=== PATIENT | male | born 1935 | race Caucasian/White ===

== ENCOUNTER 2018-08-11 10:08 | Emergency (ER) | payer MEDICARE, BC ==
[2018-08-11 10:24] VITALS: BP 136/67
[2018-08-11] MEDS ORDERED: Lidocaine 2% VISCOUS* 15 ML UDC PO ONE (10:43)
[2018-08-11] MEDS ORDERED: Phenylephrine 1% NASAL* 15 ML BOT RIGHT NARE ONE (10:44)
[2018-08-11] MEDS ORDERED: Silver Nitrate/Potassium Nitr* 1 EA STICK TOPICAL ONE (11:01)
--- NOTE | 2018-08-11 11:28 | UC ---
Epistaxis Nasal HPI - HPI Summary HPI Summary: The patient is an 82-year-old male that had the onset of right sided nosebleed this a.m. after sneezing. He states that he has had cold symptoms for about a week and has been blowing his nose a lot. He is on Eliquis and aspirin. - History of Current Complaint Chief Complaint: UCGeneralIllness Stated Complaint: BLOODY NOSE Time Seen by Provider: 08/11/18 10:41 Hx Obtained From: Patient Onset/Duration: Sudden Onset, Lasting Hours Timing: Constant Severity Initially: Mild Severity Currently: Mild Pain Intensity: 0 Pain Scale Used: 0-10 Numeric Character: Light Aggravating Factor(s): URI Associated Signs And Symptoms: Positive: Nasal Discharge Related Hx: ASA, Anticoagulants - Allergies/Home Medications Allergies/Adverse Reactions: Allergies Allergy/AdvReac Type Severity Reaction Status Date / Time Sulfa (Sulfonamide Allergy Nausea And Verified 08/11/18 10:12 Antibiotics) Vomiting Home Medications: Home Medications Aspirin EC TAB* [Ecotrin EC Low Dose 81 MG*] 81 mg PO DAILY 08/11/18 [History Confirmed 08/11/18] Rivaroxaban TAB(*) [Xarelto 10 mg (*)] 10 mg PO DAILY 08/11/18 [History Confirmed 08/11/18] PMH/Surg Hx/FS Hx/Imm Hx Endocrine History: Dyslipidemia Cardiovascular History: Cardiac Disease, Hypertension Cancer History: Prostate Cancer - Surgical History Surgical History: Yes Surgery Procedure, Year, and Place: Prostatectomy, 1993; Triple CABG, 1983 - Social History Alcohol Use: Occasionally Substance Use Type: None Smoking Status (MU): Never Smoked Tobacco Review of Systems All Other Systems Reviewed And Are Negative: Yes Constitutional: Positive: Negative Skin: Positive: Negative Eyes: Positive: Negative ENT: Positive: Nasal Discharge, Sinus Congestion Respiratory: Positive: Negative Cardiovascular: Positive: Negative Gastrointestinal: Positive: Negative Genitourinary: Positive: Negative Motor: Positive: Negative Neurovascular: Positive: Negative Musculoskeletal: Positive: Negative Neurological: Positive: Negative Psychological: Positive: Negative Physical Exam Triage Information Reviewed: Yes Appearance: Well-Appearing, No Pain Distress, Well-Nourished Vital Signs: Initial Vital Signs Temp 97.6 F 08/11/18 10:10 Pulse 56 08/11/18 10:10 Resp 18 08/11/18 10:10 BP 136/67 08/11/18 10:10 Pulse Ox 94 08/11/18 10:10 Eyes: Positive: Conjunctiva Clear ENT: Positive: Pharynx normal, Other - right ant epistaxis. Negative: Tonsillar swelling, Tonsillar exudate, Dental tenderness, Sinus tenderness, Uvula midline Neck: Positive: Supple, Nontender, No Lymphadenopathy Respiratory: Positive: Lungs clear, Normal breath sounds, No respiratory distress, No accessory muscle use Cardiovascular: Positive: RRR, No Murmur Musculoskeletal: Positive: ROM Intact, No Edema Neurological: Positive: Alert Psychological Exam: Normal Skin Exam: Normal Procedures - Procedure Summary Procedure Summary: Cauterization of right nares epistaxis cotton pleget sprayed with neosynephrine and viscous lidocaine pressure applied for 15 minutes bleeding site cauterized with silver nitrate stick tolerated procedure well Epistaxis Nasal Course/Dx - Differential Dx/Diagnosis Provider Diagnosis: Right-sided epistaxis Discharge - Sign-Out/Discharge Documenting (check all that apply): Patient Departure All imaging exams completed and their final reports reviewed: No Studies - Discharge Plan Condition: Stable Disposition: HOME Patient Education Materials: Nosebleed (ED) Referrals: Hcetor Shafer DO [Primary Care Provider] - If Needed Additional Instructions: if nosebleed recurs and does not stop after 20 minutes of pressure get recheck rest in recliner today - Billing Disposition and Condition Condition: STABLE Disposition: Home
== END 2018-08-11 11:42 | disposition home or self-care (01) ==
LOC: UCCORT 10:08
DX: R04.0 Epistaxis (principal); Z79.01 Long term (current) use of anticoagulants; Z88.2 Allergy status to sulfonamides; I10 Essential (primary) hypertension; Z85.46 Personal history of malignant neoplasm of prostate
CPT/HCPCS: 99201; A9270-GY; G0463